=== PATIENT | female | born 1955 | race Caucasian/White ===

== ENCOUNTER 2016-09-13 15:52 | Emergency (ER) | payer BC ==
[2005-02-17 06:42] VITALS: BP 123/91
[~2016-09-13] VITALS: Ht 170.2 cm; Wt 84.1 kg
[2016-09-13 15:55] VITALS: TEMP 98.4
[2016-09-13] MEDS ORDERED: ZESTRIL 10MG10 MG PO (15:57)
[2016-09-13] MEDS ORDERED: ALEVE 220MG220 MG PO (15:58)
[2016-09-13] MEDS ORDERED: FELDENE10 MG PO (15:58)
[2016-09-13] MEDS ORDERED: PREVACID 30MG30 M1 PO (15:59)
[2016-09-13] MEDS ORDERED: ZYRTEC 10MG10 MG PO (16:00)
[2016-09-13] MEDS ORDERED: OSCAL 500 TAB500 MG PO (16:00)
[2016-09-13] MEDS ORDERED: VITAMIN D31000 IU PO (16:00)
[2016-09-13] MEDS ORDERED: VITAMIN C500 MG PO (16:00)
[2016-09-13] MEDS ORDERED: NORCO 325 MG-51 TAB PO (18:03)
[2016-09-13 18:44] VITALS: BP 133/86; PULSE 94
== END 2016-09-13 18:45 | disposition home or self-care (01) ==
LOC: COL.ER 15:52
DX: S92.345A Nondisplaced fracture of fourth metatarsal bone, left foot, initial encounter for closed fracture (principal); W01.0XXA Fall on same level from slipping, tripping and stumbling without subsequent striking against object, initial encounter

== ENCOUNTER → 2017-02-05 | Outpatient (CLI) | payer BC ==
[~2017-02-05] MED LIST: ALEVE 220MG220 MG PO; FELDENE10 MG PO; NORCO 325 MG-51 TAB PO; OSCAL 500 TAB500 MG PO; PREVACID 30MG30 M1 PO; VITAMIN C500 MG PO; VITAMIN D31000 IU PO; ZESTRIL 10MG10 MG PO; ZYRTEC 10MG10 MG PO
== END ==
LOC: MC.RAD 15:17
DX: Z12.31 Encounter for screening mammogram for malignant neoplasm of breast (principal)

== ENCOUNTER 2017-06-29 07:40 | Day surgery (SDC) | payer BC ==
[2005-02-17 06:42] VITALS: BP 123/91
[2017-06-29] VITALS (7 sets, daily range): BP systolic 95–140; BP diastolic 54–84; PULSE 84–96; TEMP 97–98.5
[~2017-06-29] VITALS: Ht 170.2 cm; Wt 87.1 kg
[2017-06-29] MEDS ORDERED: ZYRTEC 10MG10 MG PO (08:09)
[2017-06-29] MEDS ORDERED: MYSOLINE 5050 MG/TAB PO (08:10)
[2017-06-29] MEDS ORDERED: ROXICODONE 55 MG/TAB PO (11:19)
[2017-06-29] MEDS ORDERED: NORCO 325 MG-7.1 TAB PO (11:20)
== END 2017-06-29 13:20 | disposition home or self-care (01) ==
LOC: SDCO 07:40
DX: S92.322K Displaced fracture of second metatarsal bone, left foot, subsequent encounter for fracture with nonunion (principal); X58.XXXD Exposure to other specified factors, subsequent encounter; Z87.891 Personal history of nicotine dependence; Z68.29 Body mass index [BMI] 29.0-29.9, adult; Z80.0 Family history of malignant neoplasm of digestive organs; Z90.710 Acquired absence of both cervix and uterus; I10 Essential (primary) hypertension; G47.33 Obstructive sleep apnea (adult) (pediatric); K21.9 Gastro-esophageal reflux disease without esophagitis; M19.90 Unspecified osteoarthritis, unspecified site
CPT/HCPCS: C1713; J0690; J2250; J2270; J2405; J2704; J3010; J7120

== ENCOUNTER → 2018-05-17 | Outpatient (CLI) | payer BC ==
[~2018-05-17] MED LIST changes: +MYSOLINE 5050 MG/TAB PO; +NORCO 325 MG-7.1 TAB PO; +ROXICODONE 55 MG/TAB PO
== END ==
LOC: MC.RAD 07:20
DX: Z12.31 Encounter for screening mammogram for malignant neoplasm of breast (principal)

== ENCOUNTER → 2018-12-29 | Outpatient (CLI) | payer BC | LOC: SUN.DIA 10:07 | DX: E11.9 Type 2 diabetes mellitus without complications (principal); I10 Essential (primary) hypertension; E66.9 Obesity, unspecified | CPT/HCPCS: G0109 ==

== ENCOUNTER → 2019-01-05 | Outpatient (CLI) | payer BC | LOC: SUN.DIA 11:53 | DX: E11.9 Type 2 diabetes mellitus without complications (principal); I10 Essential (primary) hypertension; E66.9 Obesity, unspecified | CPT/HCPCS: G0109 ==

== ENCOUNTER → 2019-01-12 | Outpatient (CLI) | payer BC | LOC: SUN.DIA 10:50 | DX: E11.9 Type 2 diabetes mellitus without complications (principal); I10 Essential (primary) hypertension; E66.9 Obesity, unspecified | CPT/HCPCS: G0109 ==

== ENCOUNTER → 2019-01-13 | Outpatient (CLI) | payer BC | LOC: SUN.DIA 08:05 | DX: E11.9 Type 2 diabetes mellitus without complications (principal); I10 Essential (primary) hypertension; E66.9 Obesity, unspecified | CPT/HCPCS: G0108 ==

== ENCOUNTER → 2019-01-19 | Outpatient (CLI) | payer BC | LOC: SUN.DIA 11:23 → DIA.ED 18:00 | DX: E11.9 Type 2 diabetes mellitus without complications (principal); I10 Essential (primary) hypertension; E66.9 Obesity, unspecified | CPT/HCPCS: G0109 ==

== ENCOUNTER → 2019-04-13 | Outpatient (CLI) | payer BC | LOC: DIA.ED 08:50 | DX: E11.9 Type 2 diabetes mellitus without complications (principal); I10 Essential (primary) hypertension; E66.9 Obesity, unspecified | CPT/HCPCS: G0108 ==

== ENCOUNTER → 2019-07-22 | Outpatient (CLI) | payer BC | LOC: MC.RAD 07:41 | DX: Z12.31 Encounter for screening mammogram for malignant neoplasm of breast (principal) ==

== ENCOUNTER → 2021-03-14 | Outpatient (CLI) | payer MEDICARE, BC | LOC: MC.RAD 09:44 | DX: Z12.31 Encounter for screening mammogram for malignant neoplasm of breast (principal); N63.20 Unspecified lump in the left breast, unspecified quadrant; Z98.82 Breast implant status ==

== ENCOUNTER → 2022-04-10 | Outpatient (CLI) | payer MEDICARE, BC | LOC: MC.RAD 14:17 | DX: Z12.31 Encounter for screening mammogram for malignant neoplasm of breast (principal) ==

== ENCOUNTER → 2023-04-23 | Outpatient (CLI) | payer MEDICARE, BC | LOC: MC.RAD 13:40 → COL.RAD 13:45 | DX: Z12.31 Encounter for screening mammogram for malignant neoplasm of breast (principal) ==

== ENCOUNTER → 2024-05-17 | Outpatient (CLI) | payer MEDICARE, BC ==
[2005-04-18 08:28] VITALS: BP 123/91; PULSE 97; TEMP 97
== END ==
LOC: MC.RAD 11:15
DX: Z12.31 Encounter for screening mammogram for malignant neoplasm of breast (principal)